=== PATIENT | female | born 1980 | race Two or more races ===

== ENCOUNTER 2016-10-26 23:29 | Emergency (ER) | payer BC, MEDICAID, OTHER ==
[~2016-10-26] VITALS: Ht 175.3 cm; Wt 98.4 kg
[2016-10-26 23:50] VITALS: BP 135/95
== END 2016-10-27 04:30 | disposition home or self-care (01) ==
LOC: ER 23:29
DX: S90.511A Abrasion, right ankle, initial encounter (principal); L03.115 Cellulitis of right lower limb; J45.909 Unspecified asthma, uncomplicated; W26.0XXA Contact with knife, initial encounter; Y93.89 Activity, other specified; Y99.8 Other external cause status; Y92.89 Other specified places as the place of occurrence of the external cause

== ENCOUNTER 2021-05-28 12:45 | Emergency (ER) | payer MEDICAID ==
[~2021-05-28] VITALS: Ht 175.3 cm; Wt 90.7 kg
[2021-05-28 14:27] LABS: Basophils # (auto) 0 10 ^3/uL (0-0.2); Basophils % (auto) 0.8 % (0.0-2.0); Eosinophils # (auto) 0.1 10 ^3/uL (0-0.8); Eosinophils % (auto) 2.3 % (0.0-7.0); Hematocrit 42.2 % (36.0-46.0); Hemoglobin 14.7 g/dL (12.2-16.2); Lymphocytes # (auto) 1.1 10 ^3/uL (0.4-5.4); Lymphocytes % (auto) 22.4 % (10.0-50.0); Mean Corpuscular Hemoglobin 32.7 pg (28.0-32.0); Mean Corpuscular Hgb Conc. 34.8 g/dL (32.0-36.0); Mean Corpuscular Volume 94.1 fL (80.0-100.0); Monocytes # (auto) 0.3 10 ^3/uL (0-1.3); Monocytes % (auto) 6.4 % (0.0-12.0); Neutrophils # (auto) 3.4 10 ^3/uL (1.6-8.6); Neutrophils % (auto) 68.1 % (37.0-80.0); Nucleated Red Blood Cells % 0.1 %; Red Blood Cells 4.48 10^6/uL (4.0-5.20); Red Cell Distribution Width 13.3 % (11.8-14.3)
[2021-05-28 14:42] LABS: INR 0.99 (0.9-1.15); Partial Thromboplastin Time 27.6 sec (23.6-33.0)
[2021-05-28 14:43] LABS: Albumin 3.8 g/dL (3.4-5.0); Calcium 9.1 mg/dL (8.5-10.1); Magnesium 2.3 mg/dL (1.6-2.6); Potassium 3.7 mmol/L (3.5-5.1)
[2021-05-28 14:51] LABS: BUN/Creatinine Ratio 14.3; Bilirubin, Total 0.6 mg/dL (0.2-1.0); Total Protein 7.9 g/dL (6.4-8.2)
[2021-05-28 19:19] VITALS: BP 128/74
== END 2021-05-28 20:38 | disposition home or self-care (01) ==
LOC: ER 12:54
DX: R07.89 Other chest pain (principal); R00.2 Palpitations; R00.0 Tachycardia, unspecified; J45.909 Unspecified asthma, uncomplicated; E11.9 Type 2 diabetes mellitus without complications
CPT/HCPCS: 36415; 71046; 80053; 83735; 84484; 85025; 85379; 85610; 85730; 93005

== ENCOUNTER → 2022-08-12 | Outpatient (CLI) | payer OTHER ==
[2022-08-12 16:38] LABS: Albumin 3.6 g/dL (3.4-5.0); Calcium 8.5 mg/dL (8.5-10.1); Potassium 3.7 mmol/L (3.5-5.1)
[2022-08-12 16:42] LABS: BUN/Creatinine Ratio 15.7 (10.0-20.0); Bilirubin, Total 0.4 mg/dL (0.2-1.0); Total Protein 7.6 g/dL (6.4-8.2)
== END | disposition home or self-care (01) ==
LOC: LAB 15:40
PROVIDERS: ATTEND Internal Medicine
DX: E78.5 Hyperlipidemia, unspecified (principal)
CPT/HCPCS: 36415; 80053

== ENCOUNTER → 2022-12-30 | Outpatient (CLI) | payer OTHER, MEDICAID | END | disposition home or self-care (01) | LOC: US 10:55 | PROVIDERS: ATTEND Internal Medicine | DX: E04.1 Nontoxic single thyroid nodule (principal) | CPT/HCPCS: 10005; 10022; 76536; 76942 ==

== ENCOUNTER 2023-05-18 20:58 | Emergency (ER) | payer OTHER, MEDICAID ==
[~2023-05-18] VITALS: Ht 175.3 cm; Wt 89.0 kg
[2023-05-18 22:14] LABS: Basophils # (auto) 0 10 ^3/uL (0-0.2); Basophils % (auto) 0.6 % (0.0-2.0); Eosinophils # (auto) 0.1 10 ^3/uL (0-0.8); Eosinophils % (auto) 1.2 % (0.0-7.0); Hematocrit 39.9 % (36.0-46.0); Hemoglobin 13.4 g/dL (12.2-16.2); Lymphocytes % (auto) 25.7 % (10.0-50.0); Mean Corpuscular Hemoglobin 31.1 pg (28.0-32.0); Mean Corpuscular Hgb Conc. 33.4 g/dL (32.0-36.0); Mean Corpuscular Volume 92.9 fL (80.0-100.0); Monocytes # (auto) 0.5 10 ^3/uL (0-1.3); Neutrophils # (auto) 5.1 10 ^3/uL (1.6-8.6); Neutrophils % (auto) 65.5 % (37.0-80.0); Red Cell Distribution Width 12.5 % (11.8-14.3); White Blood Cell 7.8 10^3/uL (4.4-10.8)
[2023-05-18] MEDS ORDERED: ZOFR4T PO (22:52)
[2023-05-18] MEDS ORDERED: IBUP-1456 PO (22:52)
[2023-05-19 02:20] VITALS: BP 120/86; PULSE 81; RESP 18; TEMP 97.4; O2SAT 100
[2023-05-19] MEDS: ONDANSETRON ODT 4 MG TAB PO ONE (02:24)
[2023-05-19] MEDS: KETOROLAC TROMETH 60MG/2ML VIAL IM ONE (02:25)
== END 2023-05-19 02:33 | disposition home or self-care (01) ==
LOC: ER 20:58
DX: M94.0 Chondrocostal junction syndrome [Tietze] (principal); R10.84 Generalized abdominal pain; E11.9 Type 2 diabetes mellitus without complications; J45.909 Unspecified asthma, uncomplicated
CPT/HCPCS: 36415; 71045; 74176; 83880; 84484; 85025; 93005; 96372; 99285; J1885; Q0162

== ENCOUNTER → 2023-05-31 | Outpatient (CLI) | payer OTHER, MEDICAID ==
[~2023-05-31] MED LIST: IBUP-1456 PO; ZOFR4T PO
== END | disposition home or self-care (01) ==
LOC: XYW 08:47
PROVIDERS: ATTEND Internal Medicine
DX: R07.9 Chest pain, unspecified (principal)
CPT/HCPCS: 93306

== ENCOUNTER 2023-09-02 19:46 | Emergency (ER) | payer OTHER, MEDICAID ==
[~2023-09-02] VITALS: Ht 175.3 cm; Wt 87.0 kg
[~2023-09-02 19:46] MED LIST changes: +TRAM50TA2 PO
[2023-09-02 20:33] LABS: Basophils # (auto) 0 10 ^3/uL (0-0.2); Basophils % (auto) 0.3 % (0.0-2.0); Eosinophils # (auto) 0.1 10 ^3/uL (0-0.8); Eosinophils % (auto) 1.2 % (0.0-7.0); Hematocrit 34.3 % (36.0-46.0); Hemoglobin 11.2 g/dL (12.2-16.2); Lymphocytes # (auto) 0.6 10 ^3/uL (0.4-5.4); Lymphocytes % (auto) 12.6 % (10.0-50.0); Mean Corpuscular Hemoglobin 26.1 pg (28.0-32.0); Mean Corpuscular Hgb Conc. 32.5 g/dL (32.0-36.0); Mean Corpuscular Volume 80.4 fL (80.0-100.0); Monocytes # (auto) 0.3 10 ^3/uL (0-1.3); Monocytes % (auto) 6.4 % (0.0-12.0); Neutrophils # (auto) 3.9 10 ^3/uL (1.6-8.6); Neutrophils % (auto) 79.5 % (37.0-80.0); Red Blood Cells 4.27 10^6/uL (4.0-5.20); Red Cell Distribution Width 15.3 % (11.8-14.3); White Blood Cell 4.9 10^3/uL (4.4-10.8)
[2023-09-02 20:51] LABS: Alanine Aminotransferase 26 U/L (7-40); Albumin 4.5 g/dL (3.2-4.8); Alkaline Phosphatase 177 U/L (46-116); Anion Gap 5 (5-15); Aspartate Aminotransferase 18 U/L (13-40); BUN/Creatinine Ratio 9.4 (10.0-20.0); Bilirubin, Total 0.7 mg/dL (0.2-1.0); Blood Urea Nitrogen 6 mg/dL (9-23); Calcium 9.4 mg/dL (8.5-10.1); Carbon Dioxide 24 mmol/L (20-30); Chloride 109 mmol/L (98-107); Glucose 99 mg/dL (74-106); Potassium 3.6 mmol/L (3.5-5.1); Sodium 138 mmol/L (136-145)
[2023-09-02 20:52] LABS: Total Protein 7.7 g/dL (5.7-8.2)
[2023-09-02] MEDS: HYDROcodone-ACET 10/325MG TAB PO ONE (22:14)
[2023-09-02 22:35] LABS: Urine Bacteria FEW /hpf (None Seen); Urine Blood Negative /uL (Negative); Urine Clarity Clear (Clear); Urine Color Colorless (Yellow); Urine Protein, UAD Negative (Negative); Urine Specific Gravity 1.004 (1.001-1.035); Urine Urobilinogen Normal (Negative); Urine WBC <1 /hpf (0 - 5)
[2023-09-03] MEDS ORDERED: ACET500T58 PO (00:56)
[2023-09-03] MEDS ORDERED: IBUP-1455 PO (00:56)
[2023-09-03 01:28] VITALS: BP 97/68; PULSE 78; RESP 16; TEMP 98.5; O2SAT 100
== END 2023-09-03 01:32 | disposition home or self-care (01) ==
LOC: ER 19:46
DX: K80.20 Calculus of gallbladder without cholecystitis without obstruction (principal); K57.90 Diverticulosis of intestine, part unspecified, without perforation or abscess without bleeding; D25.9 Leiomyoma of uterus, unspecified; R07.89 Other chest pain; J45.909 Unspecified asthma, uncomplicated; Z79.1 Long term (current) use of non-steroidal anti-inflammatories (NSAID); Z79.899 Other long term (current) drug therapy
CPT/HCPCS: 36415; 71045; 74176; 80053; 81001; 84484; 85025; 93005

== ENCOUNTER 2023-09-22 06:00 | Inpatient (IN) | payer OTHER, MEDICAID ==
[2023-09-21 09:54] LABS: Basophils # (auto) 0 10 ^3/uL (0-0.2); Eosinophils # (auto) 0.1 10 ^3/uL (0-0.8); Eosinophils % (auto) 3.9 % (0.0-7.0); Mean Corpuscular Hemoglobin 25.7 pg (28.0-32.0); Monocytes # (auto) 0.2 10 ^3/uL (0-1.3); Neutrophils # (auto) 1.8 10 ^3/uL (1.6-8.6); White Blood Cell 3.5 10^3/uL (4.4-10.8)
[2023-09-21 09:56] LABS: Basophils % (auto) 1.1 % (0.0-2.0); Hematocrit 34.1 % (36.0-46.0); Hemoglobin 11.1 g/dL (12.2-16.2); Lymphocytes # (auto) 1.4 10 ^3/uL (0.4-5.4); Lymphocytes % (auto) 38.5 % (10.0-50.0); Mean Corpuscular Hgb Conc. 32.5 g/dL (32.0-36.0); Mean Corpuscular Volume 79.3 fL (80.0-100.0); Monocytes % (auto) 5.9 % (0.0-12.0); Neutrophils % (auto) 50.6 % (37.0-80.0); Nucleated Red Blood Cells % 0.1 %; Red Cell Distribution Width 15.8 % (11.8-14.3)
[2023-09-21 10:02] LABS: Urine Bacteria FEW /hpf (None Seen); Urine Blood Negative /uL (Negative); Urine Clarity Clear (Clear); Urine Hyaline Cast FEW /lpf (0 - 2); Urine Protein, UAD Negative (Negative); Urine Specific Gravity 1.008 (1.001-1.035); Urine Urobilinogen Normal (Negative); Urine WBC 2 /hpf (0 - 5)
[2023-09-21 10:03] LABS: Urine Color Straw (Yellow)
[2023-09-21 10:19] LABS: INR 1.03 (0.9-1.15); Partial Thromboplastin Time 26.4 SEC (24.5-34.5); Prothrombin Time 10.9 sec (9.3-11.8)
[2023-09-21 10:27] LABS: Alanine Aminotransferase 31 U/L (7-40); Albumin 4.5 g/dL (3.2-4.8); Alkaline Phosphatase 158 U/L (46-116); Anion Gap 6 (5-15); Aspartate Aminotransferase 21 U/L (13-40); BUN/Creatinine Ratio 9.4 (10.0-20.0); Blood Urea Nitrogen 6 mg/dL (9-23); Calcium 9.7 mg/dL (8.5-10.1); Carbon Dioxide 26 mmol/L (20-30); Chloride 107 mmol/L (98-107); Glucose 101 mg/dL (74-106); Potassium 3.8 mmol/L (3.5-5.1); Sodium 139 mmol/L (136-145)
[2023-09-21 10:28] LABS: Bilirubin, Total 0.6 mg/dL (0.2-1.0); Total Protein 7.8 g/dL (5.7-8.2)
[~2023-09-22] VITALS: Ht 175.3 cm; Wt 86.3 kg
[~2023-09-22 06:00] MED LIST changes: +IBU600T PO; -IBUP-1456 PO; +MAGN400T40 OR; +OMEP20TA PO; +PHYT100T PO; -TRAM50TA2 PO; -ZOFR4T PO
[2023-09-22] MEDS: ceFAZolin 2 GM/D5W50ml 50 ML IV ONE (06:25)
[2023-09-22] MEDS: BUPIVACAINE HCL 50 ML ONE (06:43)
[2023-09-22] MEDS ORDERED: LIDOCAINE HCL 2% TOP JELLY 5ML TOP ONE (06:57)
[2023-09-22] MEDS ORDERED: DexAMETHasone SOD PHOS 10MG/1ML VIAL INJ ONE (06:57)
[2023-09-22] MEDS ORDERED: KETOROLAC TROMETH 30 MG/ML 1ML VIAL ONE (06:57)
[2023-09-22] MEDS ORDERED: ONDANSETRON HCL 4 MG/2 ML VIAL ONE (06:57)
[2023-09-22] MEDS ORDERED: SUGAMMADEX 200mg/2ml Vial (100MG/ML) IV ONE (06:58)
[2023-09-22] MEDS ORDERED: ROCURONIUM 10MG/ML 10ML VIAL IV ONE (06:58)
[2023-09-22] MEDS ORDERED: GLYCOPYRROLATE 0.2 MG/ML 1ML VIAL ONE (06:58)
[2023-09-22] MEDS ORDERED: LIDOCAINE 2% (LOCAL ANESTH.) PF 5ml SDV ONE (06:58)
[2023-09-22] MEDS ORDERED: PROPOFOL 10 MG/ML 20 ML IV ONE (06:58)
[2023-09-22] MEDS ORDERED: KETAMINE 50mg/ML 1ml syringe ONE (07:03)
[2023-09-22] MEDS ORDERED: fentaNYL CITRATE 100 MCG/2 ML VL ONE (07:03)
[2023-09-22] MEDS: LIDOCAINE 2%HCL (LOCAL ANESTH.) INJ 10ml MDV ONE (07:04)
[2023-09-22] MEDS: GABAPENTIN 400 MG CAP ONE (07:09)
[2023-09-22] MEDS: CELECOXIB 100 MG CAP ONE (07:09)
[2023-09-22] MEDS: ACETAMINOPHEN IV 100 ML IV ONE (07:10)
[2023-09-22] MEDS: ACETAMINOPHEN IV 1000 MG/100ML (10MG/ML) IV ONE (07:15)
[2023-09-22] MEDS: CELECOXIB 100 MG CAP PO ONE (07:20)
[2023-09-22] MEDS: GABAPENTIN 400 MG CAP PO ONE (07:20)
[2023-09-22] MEDS ORDERED: ESMOLOL HCL 10 ML IV ONE (07:55)
[2023-09-22] MEDS: LIDOCAINE W/ EPINEPHRINE 1% 20ML VIAL ONE (08:05)
[2023-09-22] MEDS: BUPIVACAINE 0.5% MPF INJ 30ML SDV IJ ONE (08:05)
[2023-09-22 08:23] VITALS: O2SAT 100
[2023-09-22] MEDS ORDERED: ePHEDrine SULFATE 50 MG/ML AMP IV PRN (08:30)
[2023-09-22] MEDS ORDERED: fentaNYL CITRATE 100 MCG/2 ML VL IV PRN (08:30)
[2023-09-22] MEDS ORDERED: FLUMAZENIL 0.1 MG/ML INJ 10ML MDV IV PRN (08:30)
[2023-09-22] MEDS ORDERED: LABETALOL HCL 5 MG/ML 4ML SYRINGE IV PRN (08:30)
[2023-09-22] MEDS ORDERED: NALOXONE HCL 0.4 MG/ML VIAL IV PRN (08:30)
[2023-09-22] MEDS ORDERED: hydrALAZINE HCL 20 MG/ML VL IV PRN (08:30)
[2023-09-22] MEDS ORDERED: ONDANSETRON HCL 4 MG/2 ML VIAL IV PRN (08:30)
[2023-09-22] MEDS: HYDROmorphone HCL 2 MG/ML VL/or syr IV PRN ×2 (08:56→17:43)
[2023-09-22] MEDS ORDERED: NITROGLYCERIN 0.4 MG SL TAB SL PRN (09:45)
[2023-09-22] MEDS: HYDROcodone-ACET 5/325MG TAB PO PRN (14:22)
[2023-09-22] MEDS: ceFAZolin 1GM/50ML 50 ML IV SCH (14:23)
[2023-09-22] MEDS: SODIUM CHLORIDE 0.9% 1,000 ML IV SCH (14:25)
[2023-09-22] MEDS: metroNIDAZOLE 500MG/100ML 100 ML IV SCH (15:00)
[2023-09-22 16:08] VITALS: BP 120/74; PULSE 84; RESP 18; TEMP 98; O2SAT 98
[2023-09-22 17:00] VITALS: BP 107/72; PULSE 71; RESP 16; TEMP 98; O2SAT 99
[2023-09-22 20:00] VITALS: PULSE 71; RESP 18; O2SAT 99
[2023-09-22] MEDS: PANTOPRAZOLE 40 MG/10 ML VIAL INJ IV ONE (20:15)
[2023-09-22] MEDS: oxyCODONE HCL 5MG TAB PO PRN (20:45)
[2023-09-22 21:00] VITALS: BP 106/70; PULSE 75; RESP 20; TEMP 98.1; O2SAT 99
[2023-09-22] MEDS: metroNIDAZOLE 500 MG TAB PO SCH (21:16)
[2023-09-23] VITALS (8 sets, daily range): BP systolic 99–118; BP diastolic 60–83; PULSE 63–92; RESP 18–20; TEMP 97.6–98.6; O2SAT 95–100
[2023-09-23 06:10] LABS: Basophils # (auto) 0 10 ^3/uL (0-0.2); Eosinophils # (auto) 0 10 ^3/uL (0-0.8); Eosinophils % (auto) 0.2 % (0.0-7.0); Hemoglobin 9.6 g/dL (12.2-16.2); Monocytes # (auto) 0.5 10 ^3/uL (0-1.3); Neutrophils # (auto) 5.3 10 ^3/uL (1.6-8.6)
[2023-09-23 06:13] LABS: Basophils % (auto) 0.3 % (0.0-2.0); Hematocrit 29.6 % (36.0-46.0); Lymphocytes # (auto) 1.7 10 ^3/uL (0.4-5.4); Lymphocytes % (auto) 22.4 % (10.0-50.0); Mean Corpuscular Hemoglobin 25.7 pg (28.0-32.0); Mean Corpuscular Hgb Conc. 32.4 g/dL (32.0-36.0); Mean Corpuscular Volume 79.4 fL (80.0-100.0); Monocytes % (auto) 6.4 % (0.0-12.0); Neutrophils % (auto) 70.7 % (37.0-80.0); Red Blood Cells 3.73 10^6/uL (4.0-5.20); Red Cell Distribution Width 15.9 % (11.8-14.3); White Blood Cell 7.5 10^3/uL (4.4-10.8)
[2023-09-23 06:30] LABS: Alanine Aminotransferase 60 U/L (7-40); Alkaline Phosphatase 150 U/L (46-116); Anion Gap 5 (5-15); BUN/Creatinine Ratio 9.6 (10.0-20.0); Blood Urea Nitrogen 5 mg/dL (9-23); Calcium 9.1 mg/dL (8.7-10.4); Carbon Dioxide 23 mmol/L (20-30); Chloride 109 mmol/L (98-107); Glucose 90 mg/dL (74-106); Potassium 3.7 mmol/L (3.5-5.1); Sodium 137 mmol/L (136-145)
[2023-09-23 06:31] LABS: Albumin 3.8 g/dL (3.2-4.8); Aspartate Aminotransferase 48 U/L (13-40); Bilirubin, Total 0.9 mg/dL (0.2-1.0); Total Protein 6.7 g/dL (5.7-8.2)
[2023-09-23] MEDS: PANTOPRAZOLE 40 MG/10 ML VIAL INJ IV SCH (08:24)
[2023-09-23] MEDS: HYDROmorphone HCL 2 MG/ML VL/or syr IV PRN (18:52)
[2023-09-24 01:00] VITALS: BP 131/84; PULSE 72; RESP 20; TEMP 98.3; O2SAT 97
[2023-09-24 05:00] VITALS: BP 104/75; PULSE 85; RESP 20; TEMP 98.2; O2SAT 99
[2023-09-24 06:43] LABS: Basophils # (auto) 0 10 ^3/uL (0-0.2); Basophils % (auto) 0.5 % (0.0-2.0); Eosinophils # (auto) 0.1 10 ^3/uL (0-0.8); Eosinophils % (auto) 1.9 % (0.0-7.0); Hematocrit 30.3 % (36.0-46.0); Hemoglobin 9.7 g/dL (12.2-16.2); Lymphocytes % (auto) 40.7 % (10.0-50.0); Mean Corpuscular Hemoglobin 25.5 pg (28.0-32.0); Mean Corpuscular Hgb Conc. 31.9 g/dL (32.0-36.0); Mean Corpuscular Volume 80.1 fL (80.0-100.0); Monocytes # (auto) 0.4 10 ^3/uL (0-1.3); Monocytes % (auto) 7.1 % (0.0-12.0); Neutrophils # (auto) 2.5 10 ^3/uL (1.6-8.6); Neutrophils % (auto) 49.8 % (37.0-80.0); Nucleated Red Blood Cells % 0.1 %; Red Blood Cells 3.78 10^6/uL (4.0-5.20); Red Cell Distribution Width 16.2 % (11.8-14.3)
[2023-09-24 07:09] LABS: Alanine Aminotransferase 51 U/L (7-40); Alkaline Phosphatase 146 U/L (46-116); Anion Gap 7 (5-15); Aspartate Aminotransferase 33 U/L (13-40); Calcium 8.8 mg/dL (8.5-10.1); Carbon Dioxide 27 mmol/L (20-30); Chloride 107 mmol/L (98-107); Glucose 83 mg/dL (74-106); Potassium 3.5 mmol/L (3.5-5.1); Sodium 141 mmol/L (136-145)
[2023-09-24 07:10] LABS: Bilirubin, Total 0.5 mg/dL (0.2-1.0); Total Protein 6.7 g/dL (5.7-8.2)
[2023-09-24 07:12] LABS: BUN/Creatinine Ratio 9.6 (10.0-20.0); Blood Urea Nitrogen < 5 mg/dL (9-23)
[2023-09-24 08:00] VITALS: PULSE 70; RESP 18; O2SAT 99
[2023-09-24 09:00] VITALS: BP 117/82; PULSE 88; RESP 20; TEMP 98.8; O2SAT 93
[2023-09-24] MEDS ORDERED: CEPH500C PO (12:58)
[2023-09-24 13:00] VITALS: BP 119/84; PULSE 84; RESP 18; TEMP 98.4; O2SAT 95
[2023-09-24 13:14] VITALS: TEMP 37.1
[2023-09-24] MEDS ORDERED: CEFI400C3 PO (16:10)
== END 2023-09-24 16:20 | disposition home or self-care (01) | DRG 419 ==
LOC: SUR 06:00 → OVERFLOW 09:42 → WEST WING 15:28
PROVIDERS: ADMIT Internal Medicine; ATTEND Internal Medicine
PROC: 0FT44ZZ Resection of Gallbladder, Percutaneous Endoscopic Approach (ICD-10-PCS; principal; 2023-09-22 07:27)
DX: K80.10 Calculus of gallbladder with chronic cholecystitis without obstruction (principal); G43.909 Migraine, unspecified, not intractable, without status migrainosus; Z98.1 Arthrodesis status; Z79.899 Other long term (current) drug therapy
CPT/HCPCS: 36415; 80053; 81001; 84702; 85025; 85610; 85730; 86850; 86900; 86901; C9113; G0378; J0131; J1100; J1885; J2001; J2405; J2704; J3490